=== PATIENT | female | born 1965 | race Caucasian/White ===

== ENCOUNTER 2024-06-27 01:17 | Emergency (ER) | payer OTHER ==
[2024-06-27] MEDS: Albuterol/Ipratropium 3.0-0.5 MG/3 ML Neb Soln NEB ONE (02:29)
[2024-06-27] MEDS: predniSONE 20 MG Tab PO ONE (02:29)
[2024-06-27] MEDS: Benzonatate 100 MG Cap PO ONE (02:29)
== END 2024-06-27 03:10 | disposition home or self-care (01) ==
LOC: JP.ED 01:17
DX: J40 Bronchitis, not specified as acute or chronic (principal); Z90.710 Acquired absence of both cervix and uterus
CPT/HCPCS: 94640; 99283; 99284; A9270-GY; J7512; J7620